=== PATIENT | female | born 1970 | race Hispanic/Latino ===

== ENCOUNTER 2024-05-30 09:07 | Outpatient (CLI) | payer OTHER | END 2024-05-30 09:08 | disposition home or self-care (01) | LOC: BICRAD 09:07 | PROVIDERS: ATTEND Internal Medicine | DX: Z02.71 Encounter for disability determination (principal); M47.817 Spondylosis without myelopathy or radiculopathy, lumbosacral region | CPT/HCPCS: 72100 ==